=== PATIENT | female | born 1970 | race American Indian/Alaskan Native ===

== ENCOUNTER 2021-01-15 09:59 | Emergency (ER) | payer SELFPAY ==
--- NOTE | 2021-01-15 13:06 | XRay Report ---
CHEST 2 VIEWS INDICATION / CLINICAL INFORMATION: cough. COMPARISON: None available. FINDINGS: SUPPORT DEVICES: None. HEART / MEDIASTINUM: No significant abnormality. LUNGS / PLEURA: No significant pulmonary or pleural abnormality. No pneumothorax. ADDITIONAL FINDINGS: No significant additional findings. IMPRESSION: 1. No acute findings. Signer Name: Antione Patino MD Signed: 01/15/2021 1:02 PM Workstation Name: [id number]
--- NOTE | 2021-01-15 14:13 | Emergency Department Report ---
ED General Adult HPI - General Chief complaint: Medical Clearance Stated complaint: COUGHING/BODY ACHES Time Seen by Provider: 01/15/21 12:22 Source: patient Mode of arrival: Ambulatory Limitations: No Limitations - History of Present Illness Initial comments: 50-year-old -Maltese female patient presents with complaints of l cough, body aches, and fatigue x3 weeks. She denies any past medical history, however states she is a smoker. No history of asthma per patient. She also denies any loss of taste/smell, chest pain, shortness of breath, recent known sick contacts, or hemoptysis. No fever, but she does admit to chills and body aches. -: Gradual - Related Data Previous Rx's Medication Instructions Recorded Last Taken Type Azithromycin [Zithromax Z-RACHEL] 0 mg PO DAILY #6 tab 01/15/21 Unknown Rx Benzonatate 200 mg PO TID PRN #30 capsule 01/15/21 Unknown Rx Prednisone [predniSONE 10 mg 10 mg PO .TAPER #1 tab.ds.pk 01/15/21 Unknown Rx (6-Day Pack, 21 Tabs)] ED Review of Systems ROS: Stated complaint: COUGHING/BODY ACHES Other details as noted in HPI Constitutional: chills, malaise. denies: diaphoresis, fever ENT: throat pain. denies: dental pain Respiratory: cough. denies: shortness of breath Cardiovascular: denies: chest pain Gastrointestinal: denies: nausea, vomiting Skin: denies: change in color Neurological: denies: headache ED Past Medical Hx - Past Medical History Previous Medical History?: No - Surgical History Past Surgical History?: No - Social History Smoking Status: Never Smoker Substance Use Type: None, Alcohol - Medications Home Medications: Home Medications Medication Instructions Recorded Confirmed Last Taken Type Azithromycin [Zithromax Z-RACHEL] 0 mg PO DAILY #6 tab 01/15/21 Unknown Rx Benzonatate 200 mg PO TID PRN #30 capsule 01/15/21 Unknown Rx Prednisone [predniSONE 10 mg 10 mg PO .TAPER #1 tab.ds.pk 01/15/21 Unknown Rx (6-Day Pack, 21 Tabs)] ED Physical Exam - General Limitations: No Limitations General appearance: alert, in no apparent distress - Head Head exam: Present: atraumatic, normocephalic - Eye Eye exam: Present: normal appearance - Expanded ENT Exam Expanded Mouth exam: Absent: drooling, trismus, muffled voice - Neck Neck exam: Present: full ROM. Absent: other (No Tariq is noted) - Respiratory Respiratory exam: Present: rhonchi (Diffuse). Absent: respiratory distress, wheezes, rales, stridor, chest wall tenderness - Cardiovascular Cardiovascular Exam: Present: regular rate, normal rhythm - Extremities Exam Extremities exam: Present: full ROM - Back Exam Back exam: Present: normal inspection - Neurological Exam Neurological exam: Present: alert, oriented X3, normal gait - Psychiatric Psychiatric exam: Present: normal affect, normal mood - Skin Skin exam: Present: warm, dry, intact, normal color. Absent: rash ED Course Vital Signs 01/15/21 11:53 Temperature 98.1 F Pulse Rate 74 Respiratory 20 Rate Blood Pressure 136/100 O2 Sat by Pulse 96 Oximetry ED Medical Decision Making - Radiology Data Radiology results: report reviewed CHEST 2 VIEWS INDICATION / CLINICAL INFORMATION: cough. COMPARISON: None available. FINDINGS: SUPPORT DEVICES: None. HEART / MEDIASTINUM: No significant abnormality. LUNGS / PLEURA: No significant pulmonary or pleural abnormality. No pneumothorax. ADDITIONAL FINDINGS: No significant additional findings. IMPRESSION: 1. No acute findings. - Medical Decision Making 50-year-old -Maltese female patient presents with complaints of l cough, body aches, and fatigue x3 weeks. She denies any past medical history, however states she is a smoker. No history of asthma per patient. She also denies any loss of taste/smell, chest pain, shortness of breath, recent known sick contacts, or hemoptysis. No fever, but she does admit to chills and body aches. Chest x-ray is negative for any acute abnormalities. Given patient's symptoms, history of smoking, and diffuse rhonchi noted on exam, will treat for acute bacterial bronchitis with Z-Archel. Recommend follow-up with primary care in 2 to 3 days. Patient to discuss elevated blood pressure-she denies history of hypertension. Her vitals are otherwise within normal limits and she is nontoxic-appearing. Discussed signs and symptoms that should prompt immediate return to the emergency department in detail with patient who verbalized understanding. Critical care attestation.: If time is entered above; I have spent that time in minutes in the direct care of this critically ill patient, excluding procedure time. ED Disposition Clinical Impression: Acute bacterial bronchitis, Elevated blood pressure reading without diagnosis of hypertension Disposition: DC-01 TO HOME OR SELFCARE Is pt being admited?: No Condition: Stable Instructions: Hypertension, Adult, Acute Bronchitis, Adult, Acute Bronchitis (ED) Prescriptions: Benzonatate 200 mg PO TID PRN #30 capsule PRN Reason: Cough Prednisone [predniSONE 10 mg (6-Day Pack, 21 Tabs)] 10 mg PO .TAPER #1 tab.ds.pk Azithromycin [Zithromax Z-RACHEL] 0 mg PO DAILY #6 tab Referrals: PRIMARY MEDICAL CARE [Provider Group] - 2-3 Days Forms: Work/School Release Form(ED)
[2021-01-15 16:08] VITALS: BP 148/98
== END 2021-01-15 16:09 | disposition home or self-care (01) ==
LOC: ED 09:59
DX: J20.8 Acute bronchitis due to other specified organisms (principal); B96.89 Other specified bacterial agents as the cause of diseases classified elsewhere; R03.0 Elevated blood-pressure reading, without diagnosis of hypertension; Z79.899 Other long term (current) drug therapy
CPT/HCPCS: 71046

== ENCOUNTER 2021-02-14 08:07 | Emergency (ER) | payer OTHER ==
--- NOTE | 2021-02-14 08:41 | Emergency Department Report ---
ED General Adult HPI - General Chief complaint: Extremity Problem,Nontraumatic Stated complaint: DENTAL PAIN, RIGHT LEG SWOLLEN PUI?: No Time Seen by Provider: 02/14/21 08:35 Source: patient Mode of arrival: Ambulatory Limitations: No Limitations - History of Present Illness Initial comments: Patient is a 50-year-old female that comes to the emergency room complaining of 1 dental pain: 2 swelling of her right lower extremity for 3 days. The swelling is new. She has no trauma. On exam she actually has bilateral lower extremity swelling but right is worse than left. She denies chest pain or shortness of breath. She has no cardiac history. She is not tachycardic. She has no hypoxia. Patient denies history of DVT or PE. She does sit a lot that being her only risk factor for VTE. Patient takes no daily medications. She is ambulatory nontoxic and [id number] on arrival to the ER. - Related Data Previous Rx's Medication Instructions Recorded Last Taken Type Amoxicillin [Trimox CAP] 500 mg PO BID #20 capsule 02/14/21 Unknown Rx Allergies Allergy/AdvReac Type Severity Reaction Status Date / Time No Known Allergies Allergy Unverified 02/14/21 08:15 ED Review of Systems ROS: Stated complaint: DENTAL PAIN, RIGHT LEG SWOLLEN Other details as noted in HPI Comment: All other systems reviewed and negative ED Past Medical Hx - Past Medical History Previous Medical History?: No - Surgical History Past Surgical History?: No - Family History Family history: no significant - Social History Smoking Status: Current Every Day Smoker Substance Use Type: Alcohol - Medications Home Medications: Home Medications Medication Instructions Recorded Confirmed Last Taken Type Amoxicillin [Trimox CAP] 500 mg PO BID #20 capsule 02/14/21 Unknown Rx ED Physical Exam - General Limitations: No Limitations General appearance: alert, in no apparent distress - Head Head exam: Present: atraumatic, normocephalic - Eye Eye exam: Present: normal appearance - ENT ENT exam: Present: mucous membranes moist - Expanded ENT Exam Expanded Mouth exam: Present: normal external inspection. Absent: drooling, trismus, muffled voice Teeth exam: Present: dental caries 1 - Other (decay caries) Throat exam: Positive: normal inspection - Neck Neck exam: Present: normal inspection - Respiratory Respiratory exam: Present: normal lung sounds bilaterally. Absent: respiratory distress - Cardiovascular Cardiovascular Exam: Present: regular rate, normal rhythm. Absent: systolic murmur, diastolic murmur, rubs, gallop - GI/Abdominal GI/Abdominal exam: Present: soft, normal bowel sounds, other (RLE edema ) - Extremities Exam Extremities exam: Present: normal inspection - Expanded Lower Extremity Exam Right Ankle exam: Present: swelling Left Foot/Toe exam: Present: swelling (Milder swelling than right) - Back Exam Back exam: Present: normal inspection - Neurological Exam Neurological exam: Present: alert, oriented X3 - Psychiatric Psychiatric exam: Present: normal affect, normal mood - Skin Skin exam: Present: warm, dry, intact, normal color. Absent: rash ED Course Vital Signs 02/14/21 08:16 Temperature 98.3 F Pulse Rate 90 Respiratory 20 Rate Blood Pressure 140/96 O2 Sat by Pulse 100 Oximetry ED Medical Decision Making - Lab Data Result diagrams: 02/14/21 08:51 02/14/21 08:51 - EKG Data -: EKG Interpreted by Tx EKG shows normal: sinus rhythm Rate: normal - EKG Data When compared to previous EKG there are: no significant change Interpretation: no acute changes - Radiology Data Radiology results: report reviewed, image reviewed No congestion - Medical Decision Making Labs 02/14/21 02/14/21 02/14/21 08:47 08:51 08:51 WBC 5.3 RBC 4.60 Hgb 10.7 Hct 33.8 MCV 73 L MCH 23 L MCHC 32 RDW 19.7 H Plt Count 192 Sodium 139 Potassium 4.2 Chloride 105.1 Carbon Dioxide 24 Anion Gap 14 BUN 7 Creatinine 0.4 L Estimated GFR > 60 BUN/Creatinine Ratio 18 Glucose 69 Calcium 8.2 L Total Bilirubin 0.40 AST 29 ALT 20 Alkaline Phosphatase 135 H Troponin T NT-Pro-B Natriuret Pep 655.5 H Total Protein 6.5 Albumin 3.6 L Albumin/Globulin Ratio 1.2 Urine Color Yellow Urine Turbidity Clear Urine pH 6.0 Ur Specific [place] 1.017 Urine Protein 30 mg/dl Urine Glucose (UA) Neg Urine Ketones Neg Urine Blood Neg Urine Nitrite Neg Ur Reducing Substances Not Reportable Urine Bilirubin Neg Urine Ictotest Not Reportable Urine Urobilinogen 4.0 Ur Leukocyte Esterase Neg Urine WBC (Auto) 1.0 Urine RBC (Auto) 1.0 U Epithel Cells (Auto) 2.0 Urine Mucus Few Urine HCG, Qual Negative 02/14/21 Unknown WBC RBC Hgb Hct MCV MCH MCHC RDW Plt Count Sodium Potassium Chloride Carbon Dioxide Anion Gap BUN Creatinine Estimated GFR BUN/Creatinine Ratio Glucose Calcium Total Bilirubin AST ALT Alkaline Phosphatase Troponin T < 0.010 NT-Pro-B Natriuret Pep Total Protein Albumin Albumin/Globulin Ratio Urine Color Urine Turbidity Urine pH Ur Specific [place] Urine Protein Urine Glucose (UA) Urine Ketones Urine Blood Urine Nitrite Ur Reducing Substances Urine Bilirubin Urine Ictotest Urine Urobilinogen Ur Leukocyte Esterase Urine WBC (Auto) Urine RBC (Auto) U Epithel Cells (Auto) Urine Mucus Urine HCG, Qual Vital Signs 02/14/21 08:16 Temperature 98.3 F Pulse Rate 90 Respiratory 20 Rate Blood Pressure 140/96 O2 Sat by Pulse 100 Oximetry LABS NOTED MILD INC IN BNP TROP NEG XRAY CHEST NO EVIDENCE HF Twelve-lead EKG noted with no ST segment elevation or depression Patient denies having had recent shortness of breath or chest pain. She has no cardiac history. No family history. UA noted. Ultrasound noted. Incidental finding of Olson's cyst. Not causing her edema on clinical exam. The edema is bilateral with right worse than left. Patient did not know cyst was there was an incidental finding. In the ER patient is ambulatory, nontoxic [id number]. She is walking without shortness of breath or chest pain. After walking from room to room her saturation is 100% on room air. She is taking p.o. I had a long discussion with the patient regarding her findings today. She has been referred to a dentist for extraction. She is also been referred to primary care for ongoing medical care. I have given her referral to cardiology to get an echocardiogram to evaluate for diastolic dysfunction. Patient medicated with Lasix p.o. in the ER to help with her swelling. Patient being discharged home with discharge plan of care. Patient verbalizes understanding of plan of care including the importance of follow-up. - Differential Diagnosis RO DVT/CHF/ACS Critical care attestation.: If time is entered above; I have spent that time in minutes in the direct care of this critically ill patient, excluding procedure time. ED Disposition Clinical Impression: Pain, dental, Leg swelling, Olson's cyst of knee Disposition: DC- TO HOME OR SELFCARE Is pt being admited?: No Does the pt Need Aspirin: No Condition: Stable Instructions: Olson Cyst Additional Instructions: follow up with 1. pcp - cyst behind knee 2. cardiology - for echo of heart 3. dentist for dental extraction drink a lot of water minimize salt eliminate fried and fast foods med as ordered today- will temporize your dental pain Prescriptions: Amoxicillin [Trimox CAP] 500 mg PO BID #20 capsule Referrals: MEHNAZ REID MD [Staff Physician] - 3[email or web address] - [facility] Days [facility] [Outside] - 3-5 Days IKE ROWE MD [Staff Physician] - 3-5 Days Time of Disposition: 08:47
[2021-02-14 09:56] LABS: HCG Qualitative,Urine Negative (Negative)
[2021-02-14 09:57] LABS: Hematocrit 33.8 % (30.3-42.9); Hemoglobin 10.7 gm/dl (10.1-14.3); Mean Corpuscular HGB Conc 32 % (30-34); Mean Corpuscular Volume 73 fl (79-97); Platelet Count 192 K/mm3 (140-440); Red Cell Distribution Width 19.7 % (13.2-15.2)
[2021-02-14 09:58] LABS: Bilirubin,Urine NEG (Negative); Blood,Urine NEG (Negative); Color,Urine Yellow (Yellow); Mucus,Urine FEW /HPF
[2021-02-14 10:18] LABS: Alanine Aminotransferase 20 units/L (7-56); Albumin 3.6 g/dL (3.9-5); Blood Urea Nitrogen 7 mg/dL (7-17); Calcium 8.2 mg/dL (8.4-10.2); Hemolysis Index 3
[2021-02-14 10:19] LABS: BUN/Creatinine Ratio 18
--- NOTE | 2021-02-14 10:31 | XRay Report ---
CHEST PA AND LATERAL VIEWS INDICATION: cough. COMPARISON: 01/15/2021 FINDINGS: Support devices: None. Heart: Stable. Lungs/Pleura: No acute pulmonary or pleural findings. IMPRESSION: 1. No significant change Signer Name: Matti Vizcaino MD Signed: 02/14/2021 10:27 AM Workstation Name: [id number]
[2021-02-14] MEDS ORDERED: FUROSEMIDE 20 MG TAB PO ONE (10:49)
--- NOTE | 2021-02-14 10:55 | Vascular Lab Report ---
DUPLEX DOPPLER LOWER EXTREMITY VEINS, RIGHT INDICATION / CLINICAL INFORMATION: swelling rle ro dvt. TECHNIQUE: Duplex doppler imaging was performed through the veins of the right lower extremity using venous comp ression and other maneuvers. COMPARISON: None available. FINDINGS: RIGHT COMMON FEMORAL VEIN: Negative. RIGHT FEMORAL VEIN: Negative. RIGHT POPLITEAL VEIN: Negative. RIGHT CALF VEINS: Negative. ADDITIONAL FINDINGS: 2 cm simple popliteal fossa cyst. IMPRESSION: 1. No sonographic evidence for DVT in the right lower extremity. 2. 2 cm simple popliteal fossa cyst. Signer Name: Markel Chandler MD Signed: 02/14/2021 10:50 AM Workstation Name: [id number]
[2021-02-14 12:06] VITALS: BP 136/71
--- NOTE | 2021-02-14 12:07 | Electrocardiograph Report ---
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
== END 2021-02-14 12:05 | disposition home or self-care (01) ==
LOC: ED 08:07
DX: M71.21 Synovial cyst of popliteal space [Baker], right knee (principal); K08.89 Other specified disorders of teeth and supporting structures; F17.200 Nicotine dependence, unspecified, uncomplicated; Z79.2 Long term (current) use of antibiotics
CPT/HCPCS: 36415; 71046; 80053; 81001; 81025; 83880; 84484; 85027; 93005